=== PATIENT | male | born 1955 | race Caucasian/White ===

== ENCOUNTER 2017-04-15 05:50 | Inpatient (IN) ==
[2017-04-15] MEDS ORDERED: VANCOMYCIN 1,000 MG VIAL ONE (06:06)
[2017-04-15] MEDS ORDERED: ceFAZolin 2,000 MG in PREMIX 1 EACH IV ONE (06:30)
[2017-04-15] MEDS ORDERED: VANCOMYCIN INJ 1,000 MG in SODIUM CHLORIDE 0.9% 250 ML IV ONE ×2 (06:30→21:00)
[2017-04-15] MEDS ORDERED: DIAZEPAM 5 MG TABLET PO ONE (06:34)
[2017-04-15] MEDS ORDERED: FAMOTIDINE 20 MG TABLET PO ONE (06:34)
[2017-04-15] MEDS ORDERED: BACITRACIN OINT 0.9 GM PACK TOP ONE (07:04)
[2017-04-15] MEDS ORDERED: TRANEXAMIC ACID 1,000 MG/10 ML VIAL IV ONE ×2 (07:04→09:29)
[2017-04-15] MEDS ORDERED: MORPHINE 10 MG/10 ML VIAL ONE (07:07)
[2017-04-15] MEDS ORDERED: EPINEPHrine 1 MG/ML VIAL ONE (07:08)
[2017-04-15] MEDS ORDERED: FAMOTIDINE 20 MG TABLET ONE (07:10)
[2017-04-15] MEDS ORDERED: DIAZEPAM 5 MG TABLET ONE (07:10)
[2017-04-15] MEDS ORDERED: LACTATED RINGERS 1,000 ML IV SCH (07:30)
[2017-04-15] MEDS ORDERED: ROPIVACAINE 0.5% 30 ML VIAL ONE ×2 (11:24→11:50)
[2017-04-15] MEDS ORDERED: ZALEPLON 5 MG CAPSULE PO PRN (12:13)
[2017-04-15] MEDS ORDERED: MAGNESIUM HYDROXIDE SUSP 30 ML UDCUP PO PRN (12:13)
[2017-04-15] MEDS ORDERED: diphenhydrAMINE CAP 25 MG CAPSULE PO PRN (12:13)
[2017-04-15] MEDS ORDERED: MORPHINE 10 MG/1 ML VIAL IV PRN ×2 (12:13)
[2017-04-15] MEDS ORDERED: oxyCODONE IR 5 MG TABLET PO PRN ×2 (12:13)
[2017-04-15] MEDS ORDERED: ONDANSETRON 4 MG/2 ML VIAL IV PRN (12:13)
[2017-04-15] MEDS ORDERED: PROPOFOL 200 MG/20 ML VIAL IV ONE (12:23)
[2017-04-15] MEDS ORDERED: SEVOFLURANE 1 UNIT/15 MINUTE INH ONE (12:23)
[2017-04-15] MEDS ORDERED: ROCURONIUM 100 MG/10 ML VIAL IV ONE (12:24)
[2017-04-15] MEDS ORDERED: ePHEDrine 50 MG/ML AMP ONE (12:24)
[2017-04-15] MEDS ORDERED: fentaNYL 100 MCG/2 ML VIAL ONE (12:24)
[2017-04-15] MEDS ORDERED: SODIUM CHLORIDE 0.9% 500 ML IV ONE (12:24)
[2017-04-15] MEDS ORDERED: SODIUM CHLORIDE 0.9% 200 ML IV ONE (12:24)
[2017-04-15] MEDS ORDERED: MIDAZOLAM 2 MG/2 ML VIAL ONE (12:24)
[2017-04-15] MEDS ORDERED: ACETAMINOPHEN 1,000 MG/100 ML VIAL IV ONE (12:24)
[2017-04-15] MEDS ORDERED: NICOTINE 14 MG/24 HR PATCH TRANSDERM PRN (14:55)
[2017-04-15] MEDS: KETOROLAC 30 MG/1 ML VIAL IV SCH ×2 (15:13→18:42)
[2017-04-15] MEDS: ceFAZolin 2,000 MG in PREMIX 1 EACH IV SCH (15:14)
[2017-04-15] MEDS ORDERED: SODIUM CHLORIDE 0.65% NASAL SPRAY 45 ML BOTTLE BOTH NARES PRN (15:30)
[2017-04-15] MEDS: LACTATED RINGERS 1,000 ML IV SCH ×2 (16:08→21:59)
[2017-04-15] MEDS: ACETAMINOPHEN 500 MG TABLET PO SCH ×2 (16:09→21:58)
[2017-04-15] MEDS: POLYETHYLENE GLYCOL POWDER 17 GM PACK PO SCH (18:42)
[2017-04-15] MEDS: DOCUSATE SODIUM 100 MG CAPSULE PO SCH (20:46)
[2017-04-16] MEDS: KETOROLAC 30 MG/1 ML VIAL IV SCH ×2 (00:37→05:48)
[2017-04-16] MEDS: ceFAZolin 2,000 MG in PREMIX 1 EACH IV SCH (00:37)
[2017-04-16] MEDS: LACTATED RINGERS 1,000 ML IV SCH (04:38)
[2017-04-16] MEDS: ACETAMINOPHEN 500 MG TABLET PO SCH ×2 (04:50→09:42)
[2017-04-16] MEDS: FONDAPARINUX 2.5 MG/0.5 ML SYRINGE SUBCUT SCH (05:48)
[2017-04-16 06:25] LABS: Basophils % 0.1 % (0.0-0.8); Hematocrit 32.1 VOL% (42.0-52.0); Hemoglobin 11.1 GM/DL (14.0-18.0); Immature Granulocytes % 0.5 %; Immature Granulocytes Absolute 0.06 #; Lymphocytes # 0.7 10*3/uL (1.4-4.0); Mean Corpuscular HGB Conc 34.6 GM/DL (32-36); Mean Corpuscular Hemoglobin 30 PG (27-34); Mean Corpuscular Volume 87.5 FL (87-102); Mean Platelet Volume 10.8 FL (9.6-12.0); Monocytes # 0.9 10*3/uL (0.11-0.8); Monocytes % 7.3 % (1.7-12.7); Neutrophils # 10.7 10*3/uL (1.4-7.4); Neutrophils % 86.1 % (38.7-73.9); Platelet Count 173 T/CUMM (130-400); Red Blood Count 3.67 MC/CUMM (3.8-5.5); Red Cell Distribution Width 12.6 % (9.3-17.3); White Blood Count 12.4 T/CUMM (4-12)
[2017-04-16 07:02] LABS: Calcium 7.7 MG/DL (8.5-10.1); Osmolality,Calculated 282.4 MOS/KG (273-304); Potassium 4.2 MMOL/L (3.5-5.1)
[2017-04-16] MEDS: NEBIVOLOL 10 MG TABLET PO SCH (08:29)
[2017-04-16] MEDS: DILTIAZEM CD 240 MG CAPSULE PO SCH (08:29)
[2017-04-16] MEDS: POLYETHYLENE GLYCOL POWDER 17 GM PACK PO SCH (08:36)
[2017-04-16] MEDS: DOCUSATE SODIUM 100 MG CAPSULE PO SCH ×2 (08:36→21:19)
[2017-04-16] MEDS: CELECOXIB 200 MG CAPSULE PO SCH (17:37)
[2017-04-17 05:58] LABS: Basophils % 0.1 % (0.0-0.8); Eosinophils % 0.2 % (0.00-10.9); Hematocrit 29.8 VOL% (42.0-52.0); Hemoglobin 9.8 GM/DL (14.0-18.0); Immature Granulocytes Absolute 0.12 #; Lymphocytes # 1.5 10*3/uL (1.4-4.0); Lymphocytes % 12.6 % (21.2-54.2); Mean Corpuscular HGB Conc 32.9 GM/DL (32-36); Mean Corpuscular Hemoglobin 30 PG (27-34); Mean Corpuscular Volume 91.4 FL (87-102); Mean Platelet Volume 10.7 FL (9.6-12.0); Monocytes # 1.1 10*3/uL (0.11-0.8); Monocytes % 9.3 % (1.7-12.7); Neutrophils # 9.4 10*3/uL (1.4-7.4); Neutrophils % 76.8 % (38.7-73.9); Platelet Count 171 T/CUMM (130-400); Red Blood Count 3.26 MC/CUMM (3.8-5.5); White Blood Count 12.2 T/CUMM (4-12)
[2017-04-17] MEDS: FONDAPARINUX 2.5 MG/0.5 ML SYRINGE SUBCUT SCH (06:29)
[2017-04-17] MEDS: CELECOXIB 200 MG CAPSULE PO SCH (08:57)
[2017-04-17] MEDS: POLYETHYLENE GLYCOL POWDER 17 GM PACK PO SCH (08:58)
[2017-04-17] MEDS: NEBIVOLOL 10 MG TABLET PO SCH (08:58)
[2017-04-17] MEDS: DILTIAZEM CD 240 MG CAPSULE PO SCH (08:58)
[2017-04-17] MEDS: DOCUSATE SODIUM 100 MG CAPSULE PO SCH (08:58)
[2017-04-17 11:13] VITALS: BP 147/77
== END 2017-04-17 12:25 | disposition home health service (06) | DRG 462 ==
LOC: N.SDSINP 05:50 → EDSEX 10:00 → N.3E 10:05
PROVIDERS: ADMIT Orthopaedic Surgery; ATTEND Orthopaedic Surgery